=== PATIENT | male | born 1945 | race Caucasian/White ===

== ENCOUNTER 2022-01-15 11:59 | Day surgery (SDC) | payer MEDICARE, OTHER ==
[~2022-01-15] VITALS: Ht 182.9 cm; Wt 81.7 kg
[2022-01-15] MEDS ORDERED: normal saline 1,000 ML IV SCH (12:30)
[2022-01-15] MEDS ORDERED: diphenhydrAMINE 25mg capsule PO PRN (12:30)
[2022-01-15] MEDS ORDERED: LORazepam 0.5 MG tablet PO PRN (12:30)
[2022-01-15 12:33] VITALS: BP 159/84
[2022-01-15] MEDS ORDERED: ATOR20TA PO (13:27)
[2022-01-15] MEDS ORDERED: ASPI-1071 PO (13:27)
[2022-01-15] MEDS ORDERED: verapamil 2.5 mg/ml inj IV ONE (14:14)
[2022-01-15] MEDS ORDERED: nitroGLYCERIN-Tridil 50MG/D5W 250 ML IV ONE (14:14)
[2022-01-15] MEDS ORDERED: LIDOcaine 1% (10mg/ml) 2ml vial ONE ×2 (14:14→14:15)
[2022-01-15] MEDS ORDERED: midazolam 1 mg/ML 2ml injection ONE (14:14)
[2022-01-15] MEDS ORDERED: heparin 1,000unit/ml 10ml vial 10 ML ONE (14:15)
[2022-01-15] MEDS ORDERED: iohexol 350MG/ML 100ml bottle IV ONE ×2 (14:15→15:32)
[2022-01-15] MEDS ORDERED: fentaNYL/PF 50MCG/1 ML 2ML syringe ONE (14:40)
[2022-01-15] MEDS ORDERED: hydrALAZINE 20mg/ml inj. IV ONE ×2 (16:02→17:05)
[2022-01-15 16:15] LABS: ISTAT Hct MIX 38 %PCV (42-52); ISTAT O2 SATURATION MIX VENOUS 57 % (60-80); ISTAT SOURCE BLNK
[2022-01-15 16:15] LABS: ISTAT HGB ART 11.9 g/dl (14.0-18.0); ISTAT Hct ART 35 %PCV (42-52); ISTAT O2 SATURATION ARTERIAL 95 % (95-98); ISTAT SOURCE BLNK
[2022-01-15 16:26] VITALS: BP 182/98
[2022-01-15 16:40] VITALS: BP 192/108
[2022-01-15] MEDS ORDERED: HYDROcodone/acetaminophen 5mg/325mg tablet PO PRN (16:40)
[2022-01-15] MEDS ORDERED: HYDROcodone/acetaminophen 10/325mg tab PO PRN (16:40)
[2022-01-15 16:59] VITALS: BP 187/99
[2022-01-15 17:13] VITALS: BP 154/82
[2022-01-15 17:16] VITALS: BP_SYST 154
== END 2022-01-15 17:55 | disposition home or self-care (01) ==
LOC: SSTAY O 11:59
PROVIDERS: ATTEND Internal Medicine Interventional Cardiology
DX: I25.10 Atherosclerotic heart disease of native coronary artery without angina pectoris (principal); E78.5 Hyperlipidemia, unspecified; I35.0 Nonrheumatic aortic (valve) stenosis; Z86.73 Personal history of transient ischemic attack (TIA), and cerebral infarction without residual deficits; Z79.899 Other long term (current) drug therapy
CPT/HCPCS: 82803; 85014; 93005; 93460; 93571; 93572; 99152; 99153; C1751; C1769; C1894; J0360; J1644; J2250; J3010; J3490; J7030; Q0163; Q9967; A4620; A5120; A6258; A6402

== ENCOUNTER 2022-02-06 10:15 | Outpatient (CLI) | payer MEDICARE, OTHER ==
[~2022-02-06 10:15] MED LIST: ASPI-1071 PO; ATOR20TA PO
[2022-02-06 10:51] LABS: BASOPHILS # (AUTO) 0.1 X10'3 (0-0.2); BASOPHILS % (AUTO) 0.6 % (0-1); EOSINOPHILS # (AUTO) 0.2 X10'3 (0-0.9); EOSINOPHILS % (AUTO) 2.2 % (0-6); HEMATOCRIT 43.3 % (42.0-52.0); HEMOGLOBIN 14.9 g/dl (14.0-17.9); LYMPHOCYTES # (AUTO) 2.2 X10'3 (1.1-4.8); LYMPHOCYTES % (AUTO) 22.9 % (21-51); MEAN CORPUSCULAR HEMOGLOBIN 28.7 PG (27.0-31.0); MEAN CORPUSCULAR HGB CONC 34.5 g/dL (33.0-36.5); MEAN CORPUSCULAR VOLUME 83.1 FL (78-98); MEAN PLATELET VOLUME 8.5 FL (7.4-10.4); MONOCYTES % (AUTO) 10.9 % (2-12); NEUTROPHILS # (AUTO) 6.1 X10'3 (1.8-7.7); NEUTROPHILS % (AUTO) 63.4 % (42-75); PLATELET COUNT 279 X10'3 (140-440); RED BLOOD COUNT 5.21 X10'6 (4.70-6.10); WHITE BLOOD COUNT 9.6 X10'3 (4.5-11.0)
[2022-02-06 10:57] LABS: APTT 29 SECONDS (22-32)
[2022-02-06 11:02] LABS: ALANINE AMINOTRANSFERASE 43 U/L (12-78); ALBUMIN 3.7 G/DL (3.4-5.0); ALBUMIN/GLOBULIN RATIO 0.8 (1.1-1.5); ALKALINE PHOSPHATASE 76 IU/L (46-116); ANION GAP 10 (8-16); ASPARTATE AMINO TRANSFERASE 21 U/L (10-37); BILIRUBIN,TOTAL 0.6 MG/DL (0.1-1.0); BLOOD UREA NITROGEN 20 MG/DL (7-18); BUN/CREATININE RATIO 21.1 (5.4-32.0); CHLORIDE 106 MMOL/L (99-107); CREATININE 0.95 MG/DL (0.60-1.10); GLUCOSE 108 MG/DL (70-104); POTASSIUM 4.6 MMOL/L (3.5-5.1); SODIUM 141 MMOL/L (135-145); TOTAL CARBON DIOXIDE 25.5 MMOL/L (24-32); TOTAL PROTEIN 8.2 G/DL (6.4-8.2); eGFR 77 ML/MIN
== END 2022-02-06 23:59 | disposition home or self-care (01) ==
LOC: RAD 10:15
PROVIDERS: ATTEND Internal Medicine Cardiovascular Disease
DX: R91.1 Solitary pulmonary nodule (principal); I35.0 Nonrheumatic aortic (valve) stenosis; I65.29 Occlusion and stenosis of unspecified carotid artery; I05.8 Other rheumatic mitral valve diseases; I25.10 Atherosclerotic heart disease of native coronary artery without angina pectoris; I70.0 Atherosclerosis of aorta; E04.1 Nontoxic single thyroid nodule; K57.30 Diverticulosis of large intestine without perforation or abscess without bleeding; M12.852 Other specific arthropathies, not elsewhere classified, left hip; M12.851 Other specific arthropathies, not elsewhere classified, right hip; M47.814 Spondylosis without myelopathy or radiculopathy, thoracic region
CPT/HCPCS: 36415; 71046; 71275; 74174; 80053; 85025; 85610; 85730; 87811; 94010; 94727; 94729; J3490

== ENCOUNTER 2022-02-14 13:39 | Outpatient (CLI) | payer MEDICARE, OTHER ==
[~2022-02-14] VITALS: Ht 188 cm; Wt 79.0 kg
--- NOTE | 2022-02-14 13:57 | NUR ---
Patient and caregiver Betzaida were in the TAV[facility] clinic today to consult with Dr. Wang and Dr. Friend. [id number] completed. Walk test completed. Vital signs measured. Patient education reviewed and questions answered.
[2022-02-14 13:59] VITALS: BP 169/80
== END 2022-02-14 23:59 | disposition home or self-care (01) ==
LOC: TAVR 13:39
PROVIDERS: ATTEND Internal Medicine Cardiovascular Disease
DX: I35.0 Nonrheumatic aortic (valve) stenosis (principal); R06.02 Shortness of breath; I65.29 Occlusion and stenosis of unspecified carotid artery; M16.0 Bilateral primary osteoarthritis of hip; E78.5 Hyperlipidemia, unspecified; F32.A Depression, unspecified

== ENCOUNTER 2022-03-28 07:30 | Inpatient (IN) | payer MEDICARE, OTHER ==
[2022-03-22 12:11] LABS: CLARITY,URINE CLEAR (Clear); COLOR,URINE YELLOW (Yellow); GLUCOSE, URINE NEGATIVE (Neg); KETONES,URINE NEGATIVE (Neg); LEUKOCYTE ESTERASE ,URINE NEGATIVE (Neg); NITRITES, URINE NEGATIVE (Neg); OCCULT BLOOD,URINE NEGATIVE (Neg); PROTEIN,URINE NEGATIVE (Neg); UROBILINOGEN,URINE 0.2 E.U/dL (0.2-1.0)
[2022-03-22 12:12] LABS: UA COLLECTION TYPE VOIDED
[2022-03-22 12:26] LABS: BASOPHILS # (AUTO) 0.1 X10'3 (0-0.2); BASOPHILS % (AUTO) 0.8 % (0-1); EOSINOPHILS # (AUTO) 0.9 X10'3 (0-0.9); LYMPHOCYTES # (AUTO) 2.4 X10'3 (1.1-4.8); LYMPHOCYTES % (AUTO) 25.6 % (21-51); MEAN CORPUSCULAR HEMOGLOBIN 29.4 PG (27.0-31.0); MEAN CORPUSCULAR HGB CONC 34.7 g/dL (33.0-36.5); MEAN CORPUSCULAR VOLUME 84.8 FL (78-98); MEAN PLATELET VOLUME 8.3 FL (7.4-10.4); MONOCYTES # (AUTO) 0.5 X10'3 (0-0.9); MONOCYTES % (AUTO) 5.7 % (2-12); NEUTROPHILS # (AUTO) 5.6 X10'3 (1.8-7.7); NEUTROPHILS % (AUTO) 58.9 % (42-75); PRE OP HEMATOCRIT 42.8 % (42.0-52.0); PRE OP HEMOGLOBIN 14.8 g/dL (14.0-17.9); PRE OP PLATELET COUNT 242 X10'3 (140-440); RED BLOOD COUNT 5.05 X10'6 (4.70-6.10); RED CELL DISTRIBUTION WIDTH 13.7 % (11.5-14.5)
[2022-03-22 12:27] LABS: PRE OP PROTIME 10.3 SECONDS (9.0-12.0)
[2022-03-22 12:29] LABS: ALBUMIN 4.2 G/DL (3.4-5.0); ALKALINE PHOSPHATASE 86 IU/L (46-116); BLOOD UREA NITROGEN 14 MG/DL (7-18); BUN/CREATININE RATIO 15.7 (5.4-32.0); CALCIUM 9.7 MG/DL (8.5-10.1); CHLORIDE 104 MMOL/L (99-107); CREATININE 0.89 MG/DL (0.60-1.10); PRE OP ALT 37 U/L (30-65); PRE OP ANION GAP 10 (8-16); PRE OP AST 25 U/L (10-37); PRE OP BILIRUB, TOTAL 0.4 MG/DL (0.0-1.0); PRE OP GLUCOSE 100 MG/DL (70-104); PRE OP POTASSIUM 4.9 MMOL/L (3.4-5.1); PRE OP SODIUM 140 MMOL/L (135-145); TOTAL CARBON DIOXIDE 26.5 MMOL/L (24-32); TOTAL PROTEIN 8.6 G/DL (6.4-8.2); eGFR 83 ML/MIN
[~2022-03-28] VITALS: Ht 185.4 cm; Wt 87.5 kg
[2022-03-28] VITALS (23 sets, daily range): BP systolic 101–185; BP diastolic 66–100
[~2022-03-28 07:30] MED LIST changes: +ACET-1025 PO; +IBUP-2801 PO; +aspirin 325mg tablet, delayed-release (Ecotrin) PO ONE; +ceFAZolin inj. 2,000 MG in dextrose 5%-water 100 ML IV ONE; +famotidine 20mg tablet PO ONE; +nitroPRUSSIDE (NIPRIDE) (200MCG/ML) 100ML Drip IV SCH; +ondansetron/PF 4mg/2ml inj IV PRN; +phenylephrine inj 50 MG in normal saline 250ml IV solN IV SCH; +protamine sulfate 10mg/ml inj. ONE; +ringers solution, lacted 1,000 ML IV SCH; +vancomycin 1,500 MG in NS 300ml IV soln IV ONE
[2022-03-28] MEDS ORDERED: acetaminophen 325mg tablet PO PRN ×2 (09:55→11:45)
[2022-03-28] MEDS ORDERED: ibuprofen 100 MG/5 ML oral susp PO PRN (09:55)
[2022-03-28] MEDS ORDERED: LIDOcaine 1%/PF 5ML 10 MG/ML VIAL ONE ×2 (10:04→10:07)
[2022-03-28] MEDS ORDERED: iohexol 350MG/ML 100ml bottle IV ONE ×2 (10:04→10:07)
[2022-03-28] MEDS ORDERED: heparin 1,000 UNITS/NS 500ml 1,500 ML ONE (10:05)
[2022-03-28] MEDS ORDERED: ePHEDrine 50MG/ML INJ. ONE (10:17)
[2022-03-28] MEDS ORDERED: heparin 1,000 units/ml 10ml inj ONE (10:17)
[2022-03-28] MEDS ORDERED: labetalol 20mg/4ml (5mg/ml) syringe IV PRN ×2 (10:20→11:45)
[2022-03-28] MEDS ORDERED: morphine 4 MG/ML inj SYRINge IV PRN (10:20)
[2022-03-28] MEDS ORDERED: morphine 2 MG/ML inj. syringe IV PRN (10:20)
[2022-03-28] MEDS ORDERED: hydrALAZINE 20mg/ml inj. IV PRN ×2 (10:20→11:45)
[2022-03-28] MEDS ORDERED: ringers solution, lacted 1,000 ML IV SCH (10:20)
[2022-03-28] MEDS ORDERED: proCHLORperazine 10 MG/2 ml inj IV PRN ×2 (10:20→11:45)
[2022-03-28] MEDS ORDERED: ondansetron/PF 4mg/2ml inj IV PRN ×2 (10:20→11:45)
[2022-03-28] MEDS ORDERED: meperidine/PF 25mg/ml syringe IV PRN ×2 (10:20)
[2022-03-28] MEDS ORDERED: acetaminophen 1,000mg/100ml IV 100 ML IV PRN (10:20)
[2022-03-28] MEDS ORDERED: fentaNYL/PF 50MCG/1 ML 2ML syringe ONE (10:23)
[2022-03-28] MEDS ORDERED: midazolam 1 mg/ML 2ml injection ONE (10:32)
[2022-03-28] MEDS ORDERED: propofol inj 20 ML IV ONE ×3 (10:46)
[2022-03-28] MEDS ORDERED: propofol 10mg/ml 20ml vial IV ONE (11:00)
[2022-03-28] MEDS ORDERED: metoprolol tartrate 1mg/ml inj IV ONE ×2 (11:26→11:28)
[2022-03-28] MEDS ORDERED: MESSAGE TO PHARMACY PO ONE (11:45)
[2022-03-28] MEDS ORDERED: pantoprazole 40mg Tablet.DR PO PRN (11:45)
[2022-03-28] MEDS ORDERED: diphenhydrAMINE 25mg capsule PO PRN (11:45)
[2022-03-28] MEDS ORDERED: glucagon, human recombinant 1mg kit SUBCUT PRN (11:45)
[2022-03-28] MEDS ORDERED: docusate sod 100mg capsule PO PRN (11:45)
[2022-03-28] MEDS ORDERED: DEXTROSE 15 GM of carb/4 tabs (each vial/BOTTLE has 4 tablets) PO PRN ×2 (11:45)
[2022-03-28] MEDS ORDERED: dextrose 50%-water 50ml dispensing syringe IV PRN ×2 (11:45)
[2022-03-28] MEDS ORDERED: insulin Lispro (HumaLOG) vial - multi-dose SQ SCH (11:45)
[2022-03-28] MEDS ORDERED: ALPRAZolam 0.25mg tablet PO PRN (11:45)
[2022-03-28] MEDS: normal saline 1000ml 1,000 ML IV SCH ×2 (14:56→21:45)
[2022-03-28] MEDS: sod chloride 0.9% 10ml flush syringe IV SCH (16:00)
[2022-03-28] MEDS: ceFAZolin 1GM/D5W- ADD-VANTAGE 50 ML IV SCH (17:09)
[2022-03-28] MEDS: vancomycin/NS 1 GM ADD-VANTAGE 250 ML IV SCH (19:34)
[2022-03-28] MEDS ORDERED: insulin glargine (Lantus) pen - multi-dose SQ SCH (21:00)
[2022-03-28] MEDS ORDERED: atorvastatin 20mg tablet PO SCH (21:00)
[2022-03-29] MEDS: ceFAZolin 1GM/D5W- ADD-VANTAGE 50 ML IV SCH ×2 (00:11→07:51)
[2022-03-29] MEDS: sod chloride 0.9% 10ml flush syringe IV SCH ×2 (00:11→07:57)
[2022-03-29 02:00] VITALS: BP 134/59
[2022-03-29 06:00] VITALS: BP 134/59
[2022-03-29] MEDS: normal saline 1000ml 1,000 ML IV SCH (07:45)
[2022-03-29] MEDS ORDERED: aspirin 81mg, enteric-coated 1 TAB TABLET.DR PO SCH (08:00)
[2022-03-29 08:07] LABS: BASOPHILS % (AUTO) 0.4 % (0-1); EOSINOPHILS # (AUTO) 0.4 X10'3 (0-0.9); EOSINOPHILS % (AUTO) 4.5 % (0-6); HEMATOCRIT 36.1 % (42.0-52.0); HEMOGLOBIN 12.7 g/dl (14.0-17.9); LYMPHOCYTES # (AUTO) 1.1 X10'3 (1.1-4.8); LYMPHOCYTES % (AUTO) 13.8 % (21-51); MEAN CORPUSCULAR HEMOGLOBIN 29.7 PG (27.0-31.0); MEAN CORPUSCULAR HGB CONC 35.2 g/dL (33.0-36.5); MEAN CORPUSCULAR VOLUME 84.2 FL (78-98); MEAN PLATELET VOLUME 8.1 FL (7.4-10.4); MONOCYTES # (AUTO) 0.8 X10'3 (0-0.9); MONOCYTES % (AUTO) 10.7 % (2-12); NEUTROPHILS # (AUTO) 5.6 X10'3 (1.8-7.7); NEUTROPHILS % (AUTO) 70.6 % (42-75); PLATELET COUNT 171 X10'3 (140-440); RED BLOOD COUNT 4.28 X10'6 (4.70-6.10); RED CELL DISTRIBUTION WIDTH 13.9 % (11.5-14.5)
[2022-03-29 08:22] LABS: ALANINE AMINOTRANSFERASE 21 U/L (12-78); ALBUMIN 3.2 G/DL (3.4-5.0); ALKALINE PHOSPHATASE 65 IU/L (46-116); ANION GAP 5 (8-16); ASPARTATE AMINO TRANSFERASE 23 U/L (10-37); BILIRUBIN,TOTAL 0.8 MG/DL (0.1-1.0); BLOOD UREA NITROGEN 14 MG/DL (7-18); BUN/CREATININE RATIO 15.1 (5.4-32.0); CALCIUM 8.5 MG/DL (8.5-10.1); CHLORIDE 107 MMOL/L (99-107); CREATININE 0.93 MG/DL (0.60-1.10); GLUCOSE 109 MG/DL (70-104); POTASSIUM 4.2 MMOL/L (3.5-5.1); SODIUM 141 MMOL/L (135-145); TOTAL CARBON DIOXIDE 28.8 MMOL/L (24-32); TOTAL PROTEIN 6.4 G/DL (6.4-8.2); eGFR 79 ML/MIN
[2022-03-29] MEDS: vancomycin/NS 1 GM ADD-VANTAGE 250 ML IV SCH (09:07)
[2022-03-29 11:00] VITALS: BP 151/63
== END 2022-03-29 15:02 | disposition home or self-care (01) | DRG 267 ==
LOC: PAS IN 07:36 → PCU 3S 13:18
PROVIDERS: ADMIT Internal Medicine Cardiovascular Disease; ATTEND Internal Medicine Cardiovascular Disease
PROC: 5A2204Z Restoration of Cardiac Rhythm, Single (ICD-10-PCS; 2022-03-28)
PROC: B41D1ZZ Fluoroscopy of Aorta and Bilateral Lower Extremity Arteries using Low Osmolar Contrast (ICD-10-PCS; 2022-03-28)
PROC: 02RF38Z Replacement of Aortic Valve with Zooplastic Tissue, Percutaneous Approach (ICD-10-PCS; principal; 2022-03-28 10:17)
DX: I35.0 Nonrheumatic aortic (valve) stenosis (principal); Z00.6 Encounter for examination for normal comparison and control in clinical research program; I47.1 Supraventricular tachycardia; E78.5 Hyperlipidemia, unspecified; R41.89 Other symptoms and signs involving cognitive functions and awareness; F32.A Depression, unspecified; I48.91 Unspecified atrial fibrillation; M16.0 Bilateral primary osteoarthritis of hip; Z86.73 Personal history of transient ischemic attack (TIA), and cerebral infarction without residual deficits
CPT/HCPCS: 33361; 36415; 71045; 71046; 76937; 80053; 81003; 82948; 83036; 83735; 83880; 85025; 85347; 85610; 85730; 86885; 86900; 86901; 86920; 87081; 87811; 92960; 93005; 93308; A4618; A6258; A6449; C1751; C1756; C1760; C1769; C1894; G0378; J0360; J0690; J1644; J1815; J2250; J2370; J2704; J2720; J3010; J3370; J3490; J7030; J7040; J7050; J7060; J7120; Q9967

== ENCOUNTER 2022-05-23 08:55 | Outpatient (CLI) | payer MEDICARE, OTHER ==
[~2022-05-23 08:55] MED LIST changes: -aspirin 325mg tablet, delayed-release (Ecotrin) PO ONE; -ceFAZolin inj. 2,000 MG in dextrose 5%-water 100 ML IV ONE; -famotidine 20mg tablet PO ONE; -nitroPRUSSIDE (NIPRIDE) (200MCG/ML) 100ML Drip IV SCH; -ondansetron/PF 4mg/2ml inj IV PRN; -phenylephrine inj 50 MG in normal saline 250ml IV solN IV SCH; -protamine sulfate 10mg/ml inj. ONE; -ringers solution, lacted 1,000 ML IV SCH; -vancomycin 1,500 MG in NS 300ml IV soln IV ONE
--- NOTE | 2022-05-23 15:58 | NUR ---
Patient had a phone TAVR clinic f/up today with Dr. Isidoro Stallings and Dr. Friend. [facility]12 completed via phone. Echo and EKG along with primary cross roller progress note reviewed with patient along with current condition of patient's symptoms.
== END 2022-05-23 23:59 | disposition home or self-care (01) ==
LOC: TAVR 08:55
PROVIDERS: ATTEND Internal Medicine Cardiovascular Disease
DX: Z13.6 Encounter for screening for cardiovascular disorders (principal)